=== PATIENT | female | born 1975 | race Caucasian/White ===

== ENCOUNTER → 2017-10-21 | Day surgery (SDC) | payer OTHER ==
[~2017-10-21] MED LIST: MOTRIN 600 MG600 MG PO; PERCOCET 325 MG1 TA2 PO; PROAIR HFA8.5 GM INH; TRAMADOL50 MG PO
--- NOTE | 2017-10-21 12:02 | Operative Report ---
Operative/Inv Procedure Report Surgery Date: 10/21/17 Name of Procedure: Laparoscopic right salpingo-oophorectomy Pre-Operative Diagnosis: Complex right adnexal mass Post-Operative Diagnosis: Same pathology pending Estimated Blood Loss: scant Surgeon/Tread Builder: Cody GOMEZ,Khalif Carrillo M.D. Anesthesia: general endotracheal tube, block, local Urine Output: 400 mL clear yellow urine at the end of the procedure and the Garcia Specimens: Right ovary and tube, peritoneal washings Complications: None Condition: Stable Operative Indication: The patient is a 42-year-old female who presented with irregular menses and pelvic pain and bloating. Ultrasound and MRI revealed a 4.3 cm complex right adnexal mass replacing normal ovarian tissue suggestive of a dermoid. The risks , benefits, options, and alternatives for treatment were discussed with the patient who elected to have surgical excision. Operative/Procedure Note Note: The patient was taken to the operating room and placed in dorsal supine position. General anesthesia was then obtained without difficulty. A TAP block was then performed by anesthesia without difficulty. The patient was then placed in lithotomy position and prepped and draped in the usual sterile fashion. A sterile speculum was then placed in the patient's vagina and the uterine manipulator was inserted into the uterus without difficulty. Garcia was then placed. Attention was then turned to the patient's abdomen where 2 mL of quarter percent Marcaine was then injected into the umbilicus. A 5 mm skin incision was then made with the scalpel and the varies needle was carefully inserted into the peritoneal cavity while tenting the anterior abdominal wall. The water drop syringe test was performed and intraperitoneal placement was confirmed with the low pressure of the CO2 gas once attached. The veres needle was then removed and a 5 mm Visiport trocar was inserted under direct visualization and once again intraperitoneal placement was confirmed. Attention was then turned to the right lower quadrant where 2 mL of quarter percent Marcaine was injected and a 5 mm incision was then made with the scalpel followed by the insertion of the 5 mm port under direct visualization. Attention was then turned to the left lower quadrant are by a 10 mm port was inserted in the same fashion. Inspection of the patient's abdomen revealed a normal sized uterus densely adherent to the anterior abdominal wall. The right ovary was noted to be replaced with a 5 cm cyst. The left ovary and tube were noted to be normal. The patient's upper abdomen was also noted to appear normal. Peritoneal washings were then obtained with the use of irrigation. The LigaSure device was then used to excise the patient's right ovary and fallopian tube. Beginning at the fundal portion of the tube, going across the broad ligament in a serial fashion, and the infundibulopelvic ligament after careful identification of the patient's ureter along the pelvic sidewall. Excellent hemostasis was noted. The specimen was then inserted into the Endo Catch bag and removed from the patient's abdomen without difficulty. Inspection of the patient's abdomen revealed once again excellent hemostasis. The gas was removed from the patient's abdomen and all instruments and trochars were removed from the patient's abdomen as well. The 5 mm incisions were closed in the usual fashion with 4-0 Vicryl. The 10 mm incision was closed with 0 Vicryl at the level of the fascia and 4-0 Vicryl at the skin. All instruments were then removed from the patient's vagina. A small amount of oozing was noted from the tenaculum site. Monsel solution was applied and excellent hemostasis was noted. All counts were reported to be correct 2. The patient was taken to the recovery room in stable condition. The right ovary and fallopian tube and peritoneal washings were all sent to pathology. Findings: The uterus was noted to be normal size and densely adherent to the anterior abdominal wall. A right ovarian cyst approximately 5 cm in size. Normal left ovary and tube. Normal upper abdomen. Discharge Disposition: PACU
== END ==
LOC: STS 04:10
DX: N83.201 Unspecified ovarian cyst, right side (principal); N92.0 Excessive and frequent menstruation with regular cycle; R10.2 Pelvic and perineal pain; K21.9 Gastro-esophageal reflux disease without esophagitis
CPT/HCPCS: 81025; 88305; 88307; J0131; J1100; J1885; J2250; J2405